=== PATIENT | male | born 1970 | race Caucasian/White ===

== ENCOUNTER 2018-12-11 21:08 | Emergency (ER) | payer OTHER ==
[~2018-12-11] VITALS: Ht 180.3 cm; Wt 136.1 kg
[2018-12-11] MEDS ORDERED: PREDNISONE 20 M20 M1 PO (21:46)
[2018-12-11] MEDS ORDERED: NORCO 5-325 TA1 EAC1 PO (21:46)
[2018-12-11 22:01] VITALS: BP 156/96
== END 2018-12-11 22:02 | disposition home or self-care (01) ==
LOC: M.ERS 21:08
DX: M26.601 Right temporomandibular joint disorder, unspecified (principal)